=== PATIENT | female | born 1975 | race Caucasian/White ===

== ENCOUNTER 2021-01-02 16:36 | Emergency (ER) | payer MEDICAID ==
--- NOTE | 2021-01-02 17:08 | EDM.PDOC ---
ED HPI GENERAL MEDICAL PROBLEM - General Chief Complaint: General Stated Complaint: ER VISIT Time Seen by Provider: 01/02/21 16:45 Source of Information: Reports: Patient History Limitations: Reports: No Limitations - History of Present Illness INITIAL COMMENTS - FREE TEXT/NARRATIVE: Patient presents to the ER with ongoing multiple complaints over the last several weeks her major complaint dose today is a headache that is been intermittent for the last several weeks. She describes it as a dull throbbing sharp headache to the top of her head that has not moved in location since several weeks ago. She states the headache does go away and comes back intermittently. Today she rates it a 10 out of 10 but is not the worst headache she has ever had. She has taken a few ibuprofen today but no other medications. She states she has been having headaches on and off since she had Covid about a month ago and it is the same type of headache no change in pattern or type. She also has been having intermittent episodes of blurred vision that may last a few seconds up to a minute since also having Covid she also has been having episodes of brain fog where she forgets certain things for a few minutes. She said prior to having Covid she never had any of these symptoms. She has not followed up with her primary care provider secondary to working out of town they are from [place] about 3 hours from here. She also denies that she does not drink any water during the day only Cokes and states she is only eating fast food for the last several weeks secondary to being on the road. She states the headaches do not affect her sleep and she is able to sleep with no issues. She says they are due to return home this Sunday and she is going to call tomorrow to get an appointment with her primary care provider for a full work- up. She has no other complaints at this time Duration: Week(s): Location: Reports: Head Quality: Reports: Ache, Burning, Pressure, Same as Previous Episode, Stabbing Severity: Severe Improves with: Reports: Medication Worsens with: Reports: None Associated Symptoms: Reports: Headaches. 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: NSAIDS - Related Data Allergies Allergy/AdvReac Type Severity Reaction Status Date / Time acetaminophen Allergy Rash Verified 01/02/21 16:49 [From Darvocet-N] bee pollen Allergy Difficulty Verified 01/02/21 16:49 Breathing propoxyphene Allergy Rash Verified 01/02/21 16:49 [From Kareemcet-N] Home Meds: Home Meds Albuterol Sulfate [Albuterol Sulfate Hfa] 2 puff IH Q4H PRN 01/02/21 [History] FLUoxetine HCl [Prozac] 40 mg PO DAILY 01/02/21 [History] Gabapentin [Neurontin] 600 mg PO TID 01/02/21 [History] QUEtiapine Fumarate [Seroquel] 200 mg PO BEDTIME 01/02/21 [History] busPIRone [Buspar] 15 mg PO TID 01/02/21 [History] hydrOXYzine HCL [Hydroxyzine HCl] 25 - 50 mg PO TID PRN 01/02/21 [History] ED ROS GENERAL - Review of Systems Review Of Systems: See Below Constitutional: Reports: No Symptoms HEENT: Reports: Vision Change Respiratory: Reports: No Symptoms Cardiovascular: Reports: No Symptoms Endocrine: Reports: Fatigue GI/Abdominal: Reports: No Symptoms : Reports: No Symptoms Musculoskeletal: Reports: No Symptoms Skin: Reports: No Symptoms Neurological: Reports: Headache. Denies: Confusion, Dizziness, Numbness, Paresthesia, Pre-Existing Deficit, Tingling, Tremors, Trouble Speaking, Difficulty Walking, Weakness, Change in Speech, Gait Disturbance Psychiatric: Reports: No Symptoms Hematologic/Lymphatic: Reports: No Symptoms Immunologic: Reports: No Symptoms ED EXAM, GENERAL - Physical Exam Exam: See Below Exam Limited By: No Limitations General Appearance: Alert, WD/WN, No Apparent Distress, Other (Patient actively watching TV upon entering the room laughing cutting up with her boyfriend) Eye Exam: Bilateral Eye: Normal Fundi, Normal Inspection, PERRL, Other (No photophobia noted no sinus tenderness palpation over maxillary or ethmoid) Ears: Normal External Exam, Normal Canal, Hearing Grossly Normal, Normal TMs. No: Hearing Loss Nose: Normal Inspection, Normal Mucosa, No Blood Throat/Mouth: Normal Inspection, Normal Lips, Normal Teeth, Normal Gums, Normal Oropharynx, Normal Voice, No Airway Compromise Head: Atraumatic, Normocephalic Neck: Normal Inspection, Supple, Non-Tender, Full Range of Motion Respiratory/Chest: No Respiratory Distress, Lungs Clear, Normal Breath Sounds, No Accessory Muscle Use, Chest Non-Tender Cardiovascular: Normal Peripheral Pulses, Regular Rate, Rhythm, No Edema, No Gallop, No JVD, No Murmur, No Rub GI/Abdominal: Normal Bowel Sounds, Soft, Non-Tender, No Organomegaly, No Distention Back Exam: Full Range of Motion Extremities: Normal Inspection, Normal Range of Motion, Non-Tender, No Pedal Edema, Normal Capillary Refill Neurological: Alert, Oriented, CN II-XII Intact, Normal Cognition, Normal Gait, Normal Reflexes, No Motor/Sensory Deficits, Other (Patient has normal Romberg normal [id number] able to stand on 1 foot equal facial sensation bilateral strength is graded 5 of 5 bilateral upper extremity lower extremity equal 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 no pronator drift or sway noted) Psychiatric: Normal Affect, Normal Mood Skin Exam: Warm, Dry, Intact, Normal Color, No Rash Lymphatic: No Adenopathy Course - Vital Signs Text/Narrative:: Patient is neurologically intact we will give Toradol 60 mg IM and reassess for headache instructed patient she needs follow-up with her primary care provider also instructed the patient she needs drink plenty of water I recommended at least 6 to 8 glasses a day Departure - Departure Time of Disposition: 17:45 Disposition: Home, Self-Care 01 Condition: Good Clinical Impression: Headache, Vision changes - Discharge Information *PRESCRIPTION DRUG MONITORING PROGRAM REVIEWED*: No *COPY OF PRESCRIPTION DRUG MONITORING REPORT IN PATIENT SHELLI: No - Problem List & Annotations (1) Headache SNOMED Code(s): 23734905 Code(s): R51.9 - HEADACHE, UNSPECIFIED Status: Acute (2) Vision changes SNOMED Code(s): 845271675 Code(s): H53.9 - UNSPECIFIED VISUAL DISTURBANCE Status: Acute
[2021-01-02] MEDS ORDERED: Ketorolac 30 MG/ML SDV IM ONE (17:11)
== END 2021-01-02 17:45 | disposition home or self-care (01) ==
LOC: VM.ED 16:36
DX: R51.9 Headache, unspecified (principal); H53.8 Other visual disturbances; Z91.030 Bee allergy status; Z88.6 Allergy status to analgesic agent
CPT/HCPCS: 96372; 99283; J1885